=== PATIENT | female | born 1975 | race Caucasian/White ===

== ENCOUNTER 2022-01-11 13:09 | Emergency (ER) | payer BC, SELFPAY ==
[2022-01-11 13:10] VITALS: BP 154/86; PULSE 70; RESP 16; TEMP 36; O2SAT 99; BMI 29.9
--- NOTE | 2022-01-11 13:53 | EDS_ITS ---
HPI History of Present Illness Chief Complaint: Chest Pain Detail of Chief Complaint: Chest pain that started 1-1/2 hours ago Informant: patient Onset/Context/Timing Current Severity: 08/11 Narrative Narrative: Patient presents the emergency department complaint chest pain that started about an hour and a half ago while sitting in car. Patient states that she felt like her heart was skipping beats and she developed chest tightness as well as diaphoresis. Patient states that she has had history of anxiety and has taken 3 doses of her Xanax but has not helped her pain. Patient has not had symptoms quite like this before. Patient is visiting here from [place]. No history of PE or DVT. No family history of heart disease. She does have history of hypertension. Patient herself has no history of coronary artery disease. Prior Similar Symptoms: No PFSH [facility] Medical History (Updated 01/11/22 @ 15:[address] Regina Lomax, ) Anxiety Allergy/AdvReac Type Severity Reaction Status Date / Time No Known Allergies Allergy Verified 01/11/22 13:10 Family History no significant family his Surgical History no surgical history Social History Smoking Status: Never smoker ROS ROS ED Review of Systems ROS Unobtainable: other Constitutional Constitutional ED: Reports lethargy; Denies chills, fever(s), sweats or weight loss Eyes Eyes: Denies blurry vision, change in vision or diplopia ENT ENT ED: Denies ear pain, rhinorrhea or sore throat Cardiovascular Cardiovascular: Reports chest pain and palpitations; Denies orthopnea or racing heartbeat Respiratory/Chest Respiratory/Chest: Denies cough, dyspnea, dyspnea on exertion, orthopnea or sputum Gastrointestinal Gastrointestinal: Denies abdominal pain, diarrhea, nausea or vomiting Genitourinary Genitourinary ED: Denies dysuria, hematuria or urinary frequency Musculoskeletal Musculoskeletal: Denies arthralgias, back pain, myalgias or neck pain Integumentary Denies abscess, Abrasions or rash Neurologic Neurologic: Denies headache(s) or weakness Psychiatric Psychiatric: Denies anxiety, depression or suicidal thoughts Endocrine Endocrinology: Denies polydipsia, polyphagia or polyuria Hematologic/Lymphatic Hematologic/Lymphatic: Denies easy bleeding, easy bruising or lymphadenopathy Allergic/Immunologic Allergic/Immunologic ED: Denies mouth swelling, tongue swelling or urticaria EXAM Physical Exam Const Vital Signs: 01/11/22 13:10 01/11/22 14:06 Temperature 96.8 F L Temperature Source Temporal Pulse Rate 70 66 Respiratory Rate 16 Blood Pressure 154/86 H 136/84 H Blood Pressure Mean 108 Pulse Ox 99 Oxygen Delivery Method Room Air Positive well nourished and well developed General Appearance ED: well developed and NAD HEENT Reports TM's clear and moist mucous membranes normocephalic and atraumatic; Negative for trauma or tenderness Tympanic Membrane ED: Yes TM's clear Eyes PERRL and EOMs intact bilaterally General Eye ED: Negative for pale conjunctiva or scleral icterus Neck no lymphadenopathy, supple and no JVD General: Negative for tenderness Chest Wall inspection of chest normal and palpation of chest normal Chest: Negative for tenderness Resp normal respiratory effort and clear to auscultation bilaterally Effort and Inspection: Negative for respiratory distress or pain with movement Auscultation: Negative for rhonchi, wheezes or diminished lung sounds Cardio regular rate, regular rhythm, S1 normal heart sound, S2 normal heart sound and no murmurs Peripheral Pulses: pulses 2+ throughout GI normal to inspection, nondistended, normoactive bowel sounds, soft to palpation, non-tender, non-distended and no masses Back/Spine no CVA tenderness and no thoracic nor lumbar tenderness Extremity normal to inspection General Extremety ED: Negative for edema General Extremity: Negative for edema Neuro oriented x3, CN's II-XII intact bilaterally, no sensory deficits noted and gait normal Sensorium / Orientation: awake, alert, oriented to person, oriented to place and oriented to time Motor Exam: strength 5/5 throughout and strength abnormal Psych mental status grossly normal Skin no rashes or lesions noted and no wounds Heart Score History: Slightly/Non-Suspicious ECG: Normal Age: >45 - <65 years Risk Factors: 1 or 2 Risk Factors Troponin: </= Normal Limit Score: 2 MDM MDM MDM Narrative Medical decision making narrative: Line established on arrival. Patient had a CBC with differential that was unremarkable. D-dimer was normal. Chemistries and troponin were normal. Patient received aspirin on arrival. She also received nitroglycerin which did seem to improve her pain and over time her pain resolved. EKG did show PACs and PVCs occasionally. Care of patient will be turned over to evening physician to follow-up on delta troponin. If normal I feel patient can be safely discharged to home. She is low risk for acute coronary syndrome. Lab Data Attestation: I reviewed the patient's lab results. Labs: Laboratory Results - last 24 hr 01/11/22 01/11/22 01/11/22 14:06 14:06 14:06 WBC 5.1 RBC 4.29 Hgb 13.0 Hct 38.7 MCV 90.2 MCH 30.3 MCHC 33.6 RDW Std Deviation 44.0 H RDW Coeff of [place] 13.3 Plt Count 237 MPV 10.3 Immature Gran % (Auto) 0.200 Neut % (Auto) 64.3 Lymph % (Auto) 25.9 Orange % (Auto) 8.4 Eos % (Auto) 0.8 Baso % (Auto) 0.4 Absolute Neuts (auto) 3.3 Absolute Lymphs (auto) 1.32 Nucleated RBC % 0 D-Dimer Quant (PE/DVT) 0.29 Sodium 137 Potassium 3.3 L Chloride 104 Carbon Dioxide 23.0 Anion Gap 10 BUN 14 Creatinine 0.77 Estim Creat Clear Calc 81.27 Est GFR (MDRD) Af Amer 103 Est GFR (MDRD) Non-Af 85 BUN/Creatinine Ratio 18.1 Glucose 94 Calcium 9.3 Troponin I High Sens 14 Radiography Chest X-Ray - ED: 1 View Diagnostic Testing: Clinical Impression(s) from Imaging Studies Chest X-Ray 01/11/22 14:05 IMPRESSION: Normal x-ray examination of the chest. Electronically Signed: Zeb Parham MD at 14:22 EDT Reading Location ID and State: [address] [place] [address] , Service support , 1 view chest are obtained interpreted by myself as no acute disease process. Radiology in agreement. EKG Initial EKG: Attestation: I personally reviewed and interpreted this EKG as follows: Comments: Sinus rhythm with a ventricular rate of 71 bpm with occasional PVCs and PACs. Discharge Plan Triage Chief Complaint: Chest Pain ED Provider: Regina Lomax Dx/Rx/DC Orders Clinical Impression: Chest pain, PVC (premature ventricular contraction) Instructions: ED Chest Pain, Uncertain Cause, ED Palpitations Primary Care Provider: [facility] Doctor,Out of Referrals: Salvatore Sneed MD [Med Staff - Software Specialist] - 3-5 Days [facility] Doctor,Out of [Primary Care Provider] - Disposition Disposition: Home, Self Care
--- NOTE | 2022-01-11 13:53 | EKG12_ITS ---
Test Reason : CP Blood Pressure : / mmHG Vent. Rate : 071 BPM Atrial Rate : 071 BPM P-R Int : 152 ms QRS Dur : 070 ms QT Int : 392 ms P-R-T Axes : 060 036 -08 degrees QTc Int : 425 ms Sinus rhythm with sinus arrhythmia with occasional Premature ventricular complexes Low voltage QRS Borderline ECG Confirmed by DAVID VITAL, AUDI ([id number]), editor trade journal JENNIFER MONTOYA ([id number]) on 01/13/2022 11:16:12 AM Referred By: PL Confirmed By:AUDI HERNANDEZ MD
--- NOTE | 2022-01-11 14:05 | RAD_ITS ---
STUDY: X-RAY CHEST REASON FOR EXAM: Female, 46 years old. Atypical chest pain TECHNIQUE: Single AP portable view of the chest. COMPARISON: None. FINDINGS: EKG leads overlie the chest The lungs are clear and expanded. There is no demonstrated pleural abnormality. Normal size heart. Normal mediastinum and clara. Normal visualized pulmonary arteries. Normal visualized aortic arch and descending thoracic aorta. Normal visualized thoracic spine. Normal visualized ribs, clavicles, and shoulders. There is no demonstrated abnormality of the visualized soft tissue structures of the upper abdomen. RAD/Chest 1 View (Portable) IMPRESSION: Normal x-ray examination of the chest. Electronically Signed: Zeb Parham MD at 14:22 EDT ,
[2022-01-11 14:06] VITALS: BP 136/84; PULSE 66
[2022-01-11] MEDS: 0.9% Normal Saline 1,000 ML 150 ML IV (14:06)
[2022-01-11] MEDS: Aspirin 81 MG TAB.CHEW 324 MG PO (14:06)
[2022-01-11] MEDS: Nitroglycerin SL (ED/IMG/CATH) 0.4 MG TABLET SL (14:06)
[2022-01-11 14:17] LABS: Absolute Lymphocyte Count 1.32 X10^3/uL (0.83-4.51); Absolute Neutrophil Count 3.3 X10^3/uL (2.0-7.7); Basophil# 0.02 X10^3/uL; Basophil% 0.4 % (0-1); Eosinophil# 0.04 X10^3/uL; Eosinophils% 0.8 % (0-5); Hematocrit 38.7 % (37-47); Lymphocyte # 1.32 X10^3/ul (0.83-4.51); Lymphocyte % 25.9 % (19-41); Mean Corp Hgb Conc 33.6 g/dL (32-36); Mean Corpuscular Hgb 30.3 pg (27.0-32.0); Mean Corpuscular Volume 90.2 fL (81-99); Mean Platelet Vol. 10.3 fl (6.2-12.0); Monocyte# 0.43 X10^3/uL; Monocyte% 8.4 % (0-10); NRBC Flagged by Analyzer 0 % (0-5); Neutrophil # 3.27 X10^3/uL (2.7-7.7); Neutrophil % 64.3 % (47-70); Platelet Count 237 K/mm3 (150-450); RBC Distribution Width CV 13.3 % (11.6-14.6); Red Blood Count 4.29 M/mm3 (4.2-5.4); White Blood Count 5.1 K/mm3 (4.4-11.0)
[2022-01-11 14:30] LABS: Anion Gap 10 (5-15); BUN 14 mg/dL (7-18); BUN/Creat Ratio 18.1 RATIO (10-20); Calcium,Total 9.3 mg/dL (8.5-10.1); Chloride 104 mmol/L (98-107); Creatinine, Serum 0.77 mg/dL (0.55-1.02); EST Glomerular Filtration Rate 85 mL/min (>60); Est Glom Filt Rate - Afr Amer 103 mL/min (>60); Estimated Creatinine Clearance 81.27 ml/min; Glucose 94 mg/dL (74-106); Potassium 3.3 mmol/L (3.5-5.1); Sodium Level 137 mmol/L (136-145); Troponin-I HS (w/2H Reflex) 14 pg/mL (3.0-54.0)
--- NOTE | 2022-01-11 14:31 | NURSING ---
NO OLD EKGS
[2022-01-11 14:48] LABS: D-Dimer Quantitative (DVT/PE) 0.29 FEU/ug/m (0.27-0.49)
[2022-01-11 16:09] LABS: Reflex Troponin-HS? (from REC) Y
[2022-01-11 16:10] VITALS: BP 123/77; PULSE 56; RESP 11; O2SAT 96
[2022-01-11 16:52] LABS: Troponin-I HS 14 pg/mL (3.0-54.0)
== END 2022-01-11 17:33 | disposition home or self-care (01) ==
PROVIDERS: Emergency Provider Emergency Medicine; Visit Provider Emergency Medicine
DX: R07.89 Other chest pain (principal); F41.9 Anxiety disorder, unspecified; I49.3 Ventricular premature depolarization; R61 Generalized hyperhidrosis; I10 Essential (primary) hypertension; I49.1 Atrial premature depolarization
CPT/HCPCS: 71045; 80048; 84484; 85025; 85379; 93005; 96360; 96361; 99284; J7030; A4216